=== PATIENT | female | born 1990 | race Two or more races ===

== ENCOUNTER 2018-07-28 12:18 | Emergency (ER) | payer OTHER ==
[~2018-07-28] VITALS: Ht 157.5 cm; Wt 58.4 kg
[2018-07-28 13:04] LABS: BASOPHILS # (AUTO) 0.03 x10^3/uL (0-0.1); BASOPHILS % (AUTO) 0 % (0-1); EOSINOPHILS # (AUTO) 0.03 x10^3/uL (0-0.4); EOSINOPHILS % (AUTO) 1 % (1-7); LYMPHOCYTES # (AUTO) 1.27 x10^3/uL (1-3.4); LYMPHOCYTES % (AUTO) 20 % (22-44); MD NO; MEAN CORPUSCULAR HEMOGLOBIN 31.5 pg (27.0-34.8); MEAN CORPUSCULAR VOLUME 92.7 fL (80-100); MEAN PLATELET VOLUME 7.9 fL (7.4-10.4); MONOCYTES # (AUTO) 0.53 x10^3/uL (0.2-0.8); MONOCYTES % (AUTO) 9 % (2-9); NEUTROPHILS # (AUTO) 4.34 x10^3/uL (1.8-6.8); NEUTROPHILS % (AUTO) 70 % (42-75); PLATELET COUNT 254 x10^3/uL (130-400); RED BLOOD COUNT 4.42 x10^6/uL (3.82-5.3); RED CELL DISTRIBUTION WIDTH 13.8 % (9.6-15.2)
[2018-07-28 13:07] LABS: CHLORIDE 110 mmol/L (98-107)
[2018-07-28 13:13] LABS: ALANINE AMINOTRANSFERASE 26 U/L (12-78); ANION GAP 6 mmol/L (5-15); CALCIUM 8.4 mg/dL (8.5-10.1); CREATININE 0.67 mg/dL (0.55-1.02)
--- NOTE | 2018-07-28 13:23 | NUR ---
PT RESTING QUIETLY ON BED, SPOUSE & CHILDREN AT BS, PT: NEPALI SPEAKER W/ LIMITED SETSWANA. SPOUSE ASSISTING IN TRANSLATING. PT C/O RT LAT ABD PAIN RADIATING TO RT FLANK; STARTED THREE DAYS AGO; BLOOD IN URINE X 2 DAYS. + NAUSEA/VOMITING. DENIES PAINFUL URINATION. LMP: 07/10/2018. LAST ORAL INTAKE: COFFEE & BREAD THIS MORNING. TYLENOL YESTERDAY.
[2018-07-28 13:30] LABS: ALKALINE PHOSPHATASE 69 U/L (45-117); BILIRUBIN,TOTAL 0.3 mg/dL (0.2-1.0); TOTAL PROTEIN 7.6 g/dL (6.4-8.2)
[2018-07-28 14:25] LABS: MICROSCOPIC AUTO
[2018-07-28 14:29] LABS: CULTURE INDICATED? YES
[2018-07-28 15:02] VITALS: BP 104/69
--- NOTE | 2018-07-28 15:11 | NUR ---
PT REPORT TO BREAK RN: ELIZABETH Aparicio PT CARE TRANSFERRED. PT AWAITING DC INSTRUCTIONS.
== END 2018-07-28 15:46 | disposition home or self-care (01) ==
LOC: ED 14:02
DX: S39.012A Strain of muscle, fascia and tendon of lower back, initial encounter (principal); N92.4 Excessive bleeding in the premenopausal period; N93.8 Other specified abnormal uterine and vaginal bleeding; X58.XXXA Exposure to other specified factors, initial encounter; Y93.89 Activity, other specified; Y92.89 Other specified places as the place of occurrence of the external cause; Y99.8 Other external cause status
CPT/HCPCS: 36415; 76830; 80053; 81001; 83690; 84703; 85025; 87086; 99284